=== PATIENT | female | born 1990 | race Caucasian/White ===

== ENCOUNTER 2017-01-15 10:01 | Emergency (ER) | payer SELFPAY ==
[~2017-01-15] VITALS: Ht 162.6 cm; Wt 89.0 kg
[2017-01-15 10:04] VITALS: Ht 162.6 cm; Wt 89.0 kg
[2017-01-15] MEDS ORDERED: ONDANSETRON 4 MG INJ IV STA (11:48)
[2017-01-15] MEDS ORDERED: SOD CHLORIDE 0.9% 1,000 ML IV STA (11:48)
[2017-01-15 12:16] LABS: BASOPHILS % 0.3 % (0.0-2.0); EOSINOPHILS # 0.1 10^3/ul (0.0-0.5); EOSINOPHILS % 0.8 % (0.0-7.0); LYMPHOCYTES # 1.9 10^3/ul (0.8-2.9); LYMPHOCYTES % 23.9 % (15.0-51.0); MEAN CORPUSCULAR HEMOGLOBIN 29.7 pg (29.0-33.0); MEAN CORPUSCULAR HGB CONC 33.3 g/dl (32.0-37.0); MEAN CORPUSCULAR VOLUME 89.2 fl (82.0-101.0); MEAN PLATELET VOLUME 11.1 fl (7.4-10.4); MONOCYTE # 0.4 10^3/ul (0.3-0.9); MONOCYTES % 5.3 % (0.0-11.0); NEUTROPHIL # 5.4 10^3/ul (1.6-7.5); NEUTROPHILS % 69.3 % (39.0-77.0); PLATELET COUNT 247 10^3/UL (140-415); RED BLOOD COUNT 4.71 10^6/ul (4.20-5.40); RED CELL DISTRIBUTION WIDTH 13.2 % (11.5-14.5); WHITE BLOOD COUNT 7.8 10^3/ul (4.8-10.8)
[2017-01-15 12:22] LABS: ADD UMIC NO; UR ASCORBIC ACID NEGATIVE (NEGATIVE); UR BILIRUBIN (Dip) NEGATIVE (NEGATIVE); UR BLOOD (Dip) NEGATIVE (NEGATIVE); UR CLARITY SLIGHTLY CLOUDY (CLEAR); UR COLOR YELLOW (YELLOW); UR GLUCOSE (Dip) NEGATIVE (NEGATIVE); UR KETONES (Dip) NEGATIVE (NEGATIVE); UR LEUKOCYTE ESTERASE (Dip) NEGATIVE Leu/ul (NEGATIVE); UR MUCUS MODERATE /HPF (NONE SEEN); UR NITRITE (Dip) NEGATIVE (NEGATIVE); UR RBC 1 /HPF (0-5); UR SQUAMOUS EPITHELIAL CELL FEW /HPF (FEW); UR TOTAL PROTEIN (Dip) NEGATIVE (NEGATIVE); UR UROBILINOGEN (Dip) NEGATIVE (NEGATIVE)
[2017-01-15 12:39] LABS: ALBUMIN 4.3 g/dl (3.3-4.9); ALBUMIN/GLOBULIN RATIO 1.22; BILIRUBIN,INDIRECT 0.2 mg/dl (0-1.1); BILIRUBIN,TOTAL 0.2 mg/dl (0.2-1.3); CALCIUM 9.3 mg/dl (8.4-10.2); CREATININE 0.73 mg/dl (0.44-1.00); POTASSIUM 3.6 mmol/L (3.5-5.1); TOTAL PROTEIN 7.8 g/dl (6.1-8.1)
--- NOTE | 2017-01-15 12:45 | RADRPT ---
PROCEDURE: US Pelvis Transabdominal and Transvaginal. CLINICAL INDICATION: Pelvic pain. TECHNIQUE: Multiple sonographic images of the pelvis were obtained utilizing mehta scale, Doppler a nd color flow imaging with transabdominal and endovaginal technique. The images were reviewed on a PACS workstation. COMPARISON: None. FINDINGS: The uterus is visualized and measures 9.4 x 4.3 x 5.7 cm. The endometrial echo complex measures 10.9 mm in thickness Nabothian cysts measuring up to 1.0 cm are seen in the cervix. A 3 mm calcificatio n is identified in the mid body of the uterus.. No uterine masses are identified. The right ovary measures 3.4 x 2.4 x 2.0 cm . The left ovary measures 3.0 x 2.1 x 1.9 cm. Both ov ashish demonstrate a normal echogenicity and vascular flow. 1.8 cm simple cyst is seen on the left ov raymundo. No adnexal masses or pelvic free fluid are noted. IMPRESSION: 3 mm calcification in the mid body of the uterus. This could reflect a small calcified fibroid or f ocal vascular calcification. Nabothian cysts in the cervix. 1.8 cm simple cyst on the left ovary. This likely reflects a prominent follicle or physiologic cyst . If further characterization of the organs of the pelvis is needed MRI should be considered. RPTAT: AA .Edward Sprague MD, MD Date Time Electronically viewed and signed by .Edward Sprague MD, MD on 01/15/2017 12:45 .P/
[2017-01-15] MEDS ORDERED: IBUP-1542 PO (13:57)
[2017-01-15] MEDS ORDERED: ONDA4TAB14 PO (13:57)
--- NOTE | 2017-01-15 14:07 | ERD ---
ER Documentation Chief Complaint Date/Time DATE: 01/15/17 TIME: 13:59 Chief Complaint pelvic pain since HPI Patient is a 26-year-old female with no past medical history presents emergency department for concerns of bilateral pelvic pain 3 days. Patient describes the pain to be episodic in nature. Patient states the pain is sharp in nature. Patient denies any fevers, chills or vomiting. Patient does report feeling nauseous. Patient states she took Tylenol which did provide her with some relief. Patient denies any dysuria, hematuria, frequency, urgency, excessive vaginal discharge, vaginal bleeding or diarrhea. Patient is currently sexually active. She states her last menstrual period was in October 2015. Patient states she did do 2 at home tests. Patient states one test was positive and the second test was negative that she is unsure if she is . ROS All systems reviewed and are negative except as per history of present illness. Medications Home Meds Active Scripts Ondansetron (Ondansetron Odt) 4 Mg Tab.rapdis, 4 MG PO Q6H Y for NAUSEA AND/OR VOMITING, #10 TAB Prov:KATTY ANDERSON PA-C 01/15/17 Ibuprofen* (Motrin*) 600 Mg Tab, 600 MG PO Q6, #30 TAB Prov:KATTY ANDERSON PA-C 01/15/17 PMhx/Soc Medical and Surgical Hx: pt denies Medical Hx, pt denies Surgical Hx Hx Alcohol Use: No Hx Substance Use: No Hx Tobacco Use: No Smoking Status: Never smoker Physical Exam Vitals Vital Signs Date Time Temp Pulse Resp B/P Pulse Ox O2 Delivery O2 Flow Rate FiO2 01/15/17 10:04 98.5 99 18 134/87 99 Physical Exam GENERAL: Well-developed, well-nourished female. Appears in no acute distress. HEAD: Normocephalic, atraumatic. EYES: Pupils are equally reactive bilaterally. EOMs grossly intact. No conjunctival erythema. ENT: Moist mucous membranes. No uvula deviation. No kissing tonsils. NECK: Supple. No meningismus. Normal range of motion of the neck. LUNG: Clear to auscultation bilaterally. No rhonchi, wheezing, rales or coarse breath sounds. HEART: Regular rate and rhythm. No murmurs, rubs or gallops. ABDOMEN:. Soft, and nondistended. Minimally tender to palpation in the bilateral pelvic regions. Positive bowel sounds in all four quadrants. No rebound tenderness, no guarding. (-) McBurney's point tenderness. No CVA tenderness. EXTREMITIES: Equal pulses bilaterally. No peripheral clubbing, cyanosis or edema. No unilateral leg swelling. NEUROLOGIC: Alert and oriented. Moving all four extremities without any difficulty. Normal speech. Steady gait. SKIN: Normal color. Warm and dry. No rashes or lesions. Result Diagram: 01/15/17 1205 01/15/17 1205 Results 24 hrs Laboratory Tests Test 01/15/17 12:05 White Blood Count 7.810^3/ul Red Blood Count 4.7110^6/ul Hemoglobin 14.0g/dl Hematocrit 42.0% Mean Corpuscular Volume 89.2fl Mean Corpuscular Hemoglobin 29.7pg Mean Corpuscular Hemoglobin Concent 33.3g/dl Red Cell Distribution Width 13.2% Platelet Count 60031^3/UL Mean Platelet Volume 11.1fl Neutrophils % 69.3% Lymphocytes % 23.9% Monocytes % 5.3% Eosinophils % 0.8% Basophils % 0.3% Nucleated Red Blood Cells % 0.0/100WBC Neutrophils # 5.410^3/ul Lymphocytes # 1.910^3/ul Monocytes # 0.410^3/ul Eosinophils # 0.110^3/ul Basophils # 0.010^3/ul Nucleated Red Blood Cells # 0.010^3/ul Urine Color YELLOW Urine Clarity SLIGHTLY CLOUDY Urine pH 6.0 Urine Specific [place] 1.020 Urine Ketones NEGATIVEmg/dL Urine Nitrite NEGATIVEmg/dL Urine Bilirubin NEGATIVEmg/dL Urine Urobilinogen NEGATIVEmg/dL Urine Leukocyte Esterase NEGATIVELeu/ul Urine Microscopic RBC 1/HPF Urine Microscopic WBC 3/HPF Urine Squamous Epithelial Cells FEW/HPF Urine Mucus MODERATE/HPF Urine Hemoglobin NEGATIVEmg/dL Urine Glucose NEGATIVEmg/dL Urine Total Protein NEGATIVEmg/dl Sodium Level 141mmol/L Potassium Level 3.6mmol/L Chloride Level 105mmol/L Carbon Dioxide Level 28mmol/L Anion Gap 12 Blood Urea Nitrogen 9mg/dl Creatinine 0.73mg/dl Glucose Level 100mg/dl Calcium Level 9.3mg/dl Total Bilirubin 0.2mg/dl Direct Bilirubin 0.00mg/dl Indirect Bilirubin 0.2mg/dl Aspartate Amino Transf (AST/SGOT) 23IU/L Alanine Aminotransferase (ALT/SGPT) 32IU/L Alkaline Phosphatase 80IU/L Total Protein 7.8g/dl Albumin 4.3g/dl Globulin 3.50g/dl Albumin/Globulin Ratio 1.22 Lipase 79U/L Serum HCG, Qualitative NEGATIVE Current Medications Medications (Trade) Dose Ordered Sig/Mishel Route PRN Reason Start Time Stop Time Status Last Admin Dose Admin Sodium Chloride (NS) 1,000 ml @ 1,000 mls/hr Q1H STAT IV 01/15/17 11:48 01/15/17 12:47 DC 01/15/17 12:43 Ondansetron HCl (Zofran Inj) 4 mg ONCE STAT IV 01/15/17 11:48 01/15/17 11:50 DC 01/15/17 12:43 Procedures/MDM ED COURSE: The patient was stable throughout ED course. I kept the patient and/or family informed of laboratory and diagnostic imaging results throughout the ED course. DIAGNOSTIC IMAGING: Read by radiologist. PROCEDURE: US Pelvis Transabdominal and Transvaginal. CLINICAL INDICATION: Pelvic pain. TECHNIQUE: Multiple sonographic images of the pelvis were obtained utilizing mehta scale, Doppler and color flow imaging with transabdominal and endovaginal technique. The images were reviewed on a PACS workstation. COMPARISON: None. FINDINGS: The uterus is visualized and measures 9.4 x 4.3 x 5.7 cm. The endometrial echo complex measures 10.9 mm in thickness Nabothian cysts measuring up to 1.0 cm are seen in the cervix. A 3 mm calcification is identified in the mid body of the uterus.. No uterine masses are identified. The right ovary measures 3.4 x 2.4 x 2.0 cm . The left ovary measures 3.0 x 2.1 x 1.9 cm. Both ovaries demonstrate a normal echogenicity and vascular flow. 1.8 cm simple cyst is seen on the left ovary. No adnexal masses or pelvic free fluid are noted. IMPRESSION: 3 mm calcification in the mid body of the uterus. This could reflect a small calcified fibroid or focal vascular calcification. Nabothian cysts in the cervix. 1.8 cm simple cyst on the left ovary. This likely reflects a prominent follicle or physiologic cyst. If further characterization of the organs of the pelvis is needed MRI should be considered. RPTAT: AA .Edward Sprague MD, MD Date Time Electronically viewed and signed by .Edward Sprague MD, MD on 01/15/2017 12:45 .P/ CC: KATTY ANDERSON PA-C MEDICATIONS GIVEN: IV fluids, Zofran, Patient tolerated medication well with no adverse reactions. MEDICAL DECISION MAKING: This is a 26-year-old female who presents with bilateral pelvic pain 3 days. Patient describes the pain to be episodic in nature.. Vital signs were reviewed. Patient was afebrile. Patient reported 1 positive test and one negative test. Given that she had a false positive, a beta-hCG level was obtained. Beta-hCG level was negative. CBC showed no evidence of systemic infection or severe anemia. CMP showed no evidence of electrolyte abnormalities, severe acidosis, alkalosis, renal failure , or liver disease. Lipase showed no evidence of acute pancreatitis. UA showed no evidence of acute infection. Pelvic US showed 3 mm calcification in the mid body of the uterus. This could reflect a small calcified fibroid or focal vascular calcification. Nabothian cysts in the cervix. 1.8 cm simple cyst on the left ovary. This likely reflects a prominent follicle or physiologic cyst. Given these findings, the patient's presentation is most consistent with left ovarian cyst. I have a much lower clinical concern for , ectopic , ovarian torsion, PID, tubo-ovarian abscess, vulvovaginitis, nephrolithiasis, pyelonephritis, UTI, appendicitis, diverticulitis, bowel obstruction. PRESCRIPTIONS: Ibuprofen Zofran DISCHARGE: At this time, patient is stable for discharge and outpatient management. Patient was given a copy of all imaging and blood work obtained today. Patient advised to follow up with OBGYN. Referral info given. I have instructed the patient to follow-up with his/her primary care physician in 1-2 days. I have discussed with the patient the possibility of needing to see a specialist for further workup and diagnostic studies if the pain persists. I have instructed the patient to promptly return to the ER at any time for any new or worsening symptoms including increased pain, nausea, vomiting, vaginal bleeding, weakness or fever. The patient and/or family expressed understanding of and agreement with this plan. All questions were answered. Home care instructions were provided. Disclaimer: Inadvertent spelling and grammatical errors are likely due to EHR/ dictation software use and do not reflect on the overall quality of patient care. Also, please note that the electronic time recorded on this note does not necessarily reflect the actual time of the patient encounter. Departure Diagnosis: Primary Impression: Ovarian cyst Laterality: left Qualified Code: N83.202 - Cyst of left ovary Additional Impression: Pelvic pain Condition: Stable Patient Instructions: Pelvic Pain, Unknown Cause Referrals: [facility] YOU HAVE RECEIVED A MEDICAL SCREENING EXAM AND THE RESULTS INDICATE THAT YOU DO NOT HAVE A CONDITION THAT REQUIRES URGENT TREATMENT IN THE EMERGENCY DEPARTMENT. FURTHER EVALUATION AND TREATMENT OF YOUR CONDITION CAN WAIT UNTIL YOU ARE SEEN IN YOUR DOCTORS OFFICE WITHIN THE NEXT 1-2 DAYS. IT IS YOUR RESPONSIBILITY TO MAKE AN APPOINTMENT FOR FOLOW-UP CARE. IF YOU HAVE A PRIMARY DOCTOR --you should call your primary doctor and schedule an appointment IF YOU DO NOT HAVE A PRIMARY DOCTOR YOU CAN CALL OUR PHYSICIAN REFERRAL HOTLINE AT IF YOU CAN NOT AFFORD TO SEE A PHYSICIAN YOU CAN CHOSE FROM THE FOLLOW[facility] [address] [facility]. [facility] [address] [facility]. [facility] [address] [facility]. [facility] [address] [facility]. [facility] [address] [facility]. [facility]. [address] [facility]. [facility] YOU HAVE RECEIVED A MEDICAL SCREENING EXAM AND THE RESULTS INDICATE THAT YOU DO NOT HAVE A CONDITION THAT REQUIRES URGENT TREATMENT IN THE EMERGENCY DEPARTMENT. FURTHER EVALUATION AND TREATMENT OF YOUR CONDITION CAN WAIT UNTIL YOU ARE SEEN IN YOUR DOCTORS OFFICE WITHIN THE NEXT 1-2 DAYS. IT IS YOUR RESPONSIBILITY TO MAKE AN APPOINTMENT FOR FOLOW-UP CARE. IF YOU HAVE A PRIMARY DOCTOR --you should call your primary doctor and schedule and appointment IF YOU DO NOT HAVE A PRIMARY DOCTOR YOU CAN CALL OUR PHYSICIAN REFERRAL HOTLINE AT . IF YOU CAN NOT AFFORD TO SEE A PHYSICIAN YOU CAN CHOSE FROM THE FOLLOWING [facility] INSTITUTIONS: [facility] [address] [place] [address] [facility] [address] [place] [address] [facility] [address] [place] [address] IN[place]ATION [place] [address] [facility] [address] [place] [address] OFFICE FAX , [facility] [address] [place] [address] [address] [facility] [address] [place] [address] [address], [facility] [address] [facility], [facility] [address] [address], [facility] [address] [place] [address] [facility] [address] [place] [address] [phone] [address] [facility] [address] - [place] [address], [facility] [address] [address] [address] [facility]. [address], [facility] [address] [address] [address] [place], [place] [id number] Additional Instructions: Call your primary care doctor/OBGYN TOMORROW for an appointment during the next 1-2 days.See the doctor sooner or return here if your condition worsens before your appointment time. KATTY ANDERSON PA-C Jan 15, 2017 14:07
[2017-01-15 14:10] VITALS: BP 133/89; PULSE 85; RESP 16; TEMP 98.3
== END 2017-01-15 14:10 | disposition home or self-care (01) ==
LOC: FTE 10:01
DX: N83.202 Unspecified ovarian cyst, left side (principal)
CPT/HCPCS: 76830; 76856; 80053; 81001; 83690; 84703; 85025; 96374; 99285; J2405; J7030; 81003

== ENCOUNTER 2017-01-26 21:46 | Emergency (ER) | payer SELFPAY ==
[~2017-01-26] VITALS: Ht 162.6 cm; Wt 80.5 kg
[~2017-01-26 21:46] MED LIST: IBUP-1542 PO; ONDA4TAB14 PO
[2017-01-26 21:54] VITALS: Ht 162.6 cm; Wt 80.5 kg
== END 2017-01-26 23:28 | disposition left against medical advice (07) ==
LOC: FTE 21:46
DX: Z53.21 Procedure and treatment not carried out due to patient leaving prior to being seen by health care provider (principal)

== ENCOUNTER 2017-04-24 12:02 | Emergency (ER) | END 2017-04-24 15:14 | disposition home or self-care (01) ==

== ENCOUNTER 2017-07-25 19:25 | Emergency (ER) | END 2017-07-25 20:19 | disposition home or self-care (01) ==

== ENCOUNTER 2017-07-30 17:13 | Emergency (ER) | END 2017-07-30 22:45 | disposition left against medical advice (07) ==

== ENCOUNTER 2017-09-03 14:24 | Emergency (ER) | END 2017-09-03 18:15 | disposition home or self-care (01) ==

== ENCOUNTER 2018-01-23 12:36 | Emergency (ER) | END 2018-01-23 15:30 | disposition home or self-care (01) ==

== ENCOUNTER 2018-04-04 18:08 | Emergency (ER) | END 2018-04-04 21:29 | disposition home or self-care (01) ==